=== PATIENT | male | born 1955 | race Caucasian/White ===

== ENCOUNTER 2016-10-31 15:09 | Emergency (ER) | payer OTHER ==
[~2016-10-31] VITALS: Ht 175.3 cm; Wt 82.0 kg
[~2016-10-31 15:09] MED LIST: LANSO15 PO; XANA0.5T PO
[2016-10-31 15:12] VITALS: BP 133/85; PULSE 103; RESP 15; TEMP 97.6; O2SAT 97
--- NOTE | 2016-10-31 15:35 | PD ---
Physical Exam Time Seen by Provider: 15:32 Narrative 61yo M c/o LLQ abd pain started today. Radiates to L testicle. Deneis N,V,D. Denies penile discharge or testicular swelling. Denies fever. VSS. Patient seen in triage. Waiting for bed placement. Data Data Last Documented VS Vital Signs Date Time Temp Pulse Resp B/P Pulse Ox O2 Delivery O2 Flow Rate FiO2 10/31/16 15:12 97.6 103 15 133/85 97 MDM Supervised Visit with SAAD: Thelma Sutherland Oct 31, 2016 15:35
--- NOTE | 2016-10-31 18:02 | PD ---
HPI Chief Complaint: Complaint Time Seen by Provider: 17:35 Travel History International Travel<30 days: No Contact w/Intl Traveler<30days: No Traveled to known affect area: No History of Present Illness HPI Patient is a 61-year-old male presents emergency department for evaluation of left testicle pain radiating to his left groin for the past 3 days on and off. States that his testicles do not feel the same in the pain seems to come from the superior most aspect of his left testicle. He is not feeling any masses and has had some mild dysuria. Denies any nausea or vomiting. States pain is fairly unimpressive currently. States never had this kind of thing happen to him before. States never had any scrotal issues female issues in the past. Happily no penile discharge. PFSH Past Medical History Anxiety: Yes Depression: Yes Cancer: No Cardiovascular Problems: No Diabetes: No Endocrine: No Gastrointestinal Disorders: Yes GERD: Yes Genitourinary: No Hepatitis: No Hiatal Hernia: No Hypertension: No Immune Disorder: No Implanted Vascular Access Dvce: No Medical other: Yes (L4, L5) Musculoskeletal: Yes (BACK AND NECK PAIN) Neurologic: No Psychiatric: Yes Reproductive: No Respiratory: No Immunizations Current: Yes Thyroid Disease: No Past Surgical History Body Medical Devices: NONE Cholecystectomy: Yes Other Surgery: Yes Social History Alcohol Use: No Tobacco Use: No Substance Use: No Allergies-Medications (Allergen,Severity, Reaction): Coded Allergies: Penicillin (Verified Allergy, Severe, Rash, 10/31/16) Naprosyn (Verified Adverse Reaction, Intermediate, Rash, 10/31/16) *MDRO Multi-Drug Resistant Organism (Verified Adverse Reaction, Unknown, ) MRSA PCR Screen negative 12/21/14. Reported Meds & Prescriptions Reported Meds & Active Scripts Active Levaquin (Levofloxacin) 750 Mg Tab 750 Mg PO DAILY 14 Days Reported Prevacid 15 Mg Solutab (Lansoprazole) 15 Mg Tab 15 Mg PO DAILY Xanax 0.5 mg (Alprazolam) Alprazolam 0.5 mg Tab 2 Tab PO HS Review of Systems Except as stated in HPI: all other systems reviewed are Neg Physical Exam Narrative GENERAL: [Well-developed well-nourished no apparent distress SKIN: Focused skin assessment warm/dry. HEAD: Atraumatic. Normocephalic. EYES: Pupils equal and round. No scleral icterus. No injection or drainage. ENT: No nasal bleeding or discharge. Mucous membranes pink and moist. NECK: Trachea midline. No JVD. CARDIOVASCULAR: Regular rate and rhythm. No murmur appreciated. RESPIRATORY: No accessory muscle use. Clear to auscultation. Breath sounds equal bilaterally. GASTROINTESTINAL: Abdomen soft, non-tender, nondistended. Hepatic and splenic margins not palpable no rebound no percussive tenderness. GENITOURINARY: Minimal tenderness of the left epididymis, scrotal sac otherwise unremarkable, testes normal, cremasteric reflex intact. Penis circumcised no discharge. No hernia. MUSCULOSKELETAL: No obvious deformities. No clubbing. No cyanosis. No edema. NEUROLOGICAL: Awake and alert. No obvious cranial nerve deficits. Motor grossly within normal limits. Normal speech. PSYCHIATRIC: Appropriate mood and affect; insight and judgment normal. Data Data Last Documented VS Vital Signs Date Time Temp Pulse Resp B/P Pulse Ox O2 Delivery O2 Flow Rate FiO2 10/31/16 15:12 97.6 103 15 133/85 97 Orders Us Testicles W Doppler (10/31/16 17:35) Urinalysis - C+S If Indicated (10/31/16 17:35) Oxycodone-Acetamin 5-325 Mg (Percocet (10/31/16 18:45) Labs Laboratory Tests Test 10/31/16 18:10 Urine Color YELLOW Urine Turbidity CLEAR Urine pH 7.0 Urine Specific [place] 1.012 Urine Protein NEG mg/dL Urine Glucose (UA) NEG mg/dL Urine Ketones NEG mg/dL Urine Occult Blood NEG Urine Nitrite NEG Urine Bilirubin NEG Urine Urobilinogen LESS THAN 2.0 MG/DL Urine Leukocyte Esterase NEG Urine RBC 1 /hpf Urine WBC LESS THAN 1 /hpf Urine Amorphous Sediment OCC Urine Bacteria RARE /hpf Microscopic Urinalysis Comment CULT NOT INDICATED MDM Medical Decision Making Medical Screen Exam Complete: Yes Emergency Medical Condition: Yes Differential Diagnosis Epididymitis, orchitis, urinary tract infection, hernia, groin pain. Narrative Course Patient roomed emergency department, appears well and in no apparent distress. Patient initially declined pain medicine during ultrasound needed Percocet. Abdominal exam is completely benign, there is some minimal epididymal tenderness. Ultrasound is normal. Discussed with patient and etiology of his pain is yet undetermined. Recommend trial of Levaquin for possible early epididymitis and follow-up with his primary care physician and he is amenable. Is no indication further emergent workup at this time. Last 24 hours Impressions Scrotum Ultrasound 10/31/16 [id number] Signed Impressions: Service Date/Time: October 18:17 - CONCLUSION: Testicles are normal. There is no evidence of mass or torsion Nimesh Damon MD Vital Signs Date Time Temp Pulse Resp B/P Pulse Ox O2 Delivery O2 Flow Rate FiO2 10/31/16 15:12 97.6 103 15 133/85 97 Diagnosis Primary Impression: Testicular pain, left Med/Other Pt SpecificInfo: Prescription(s) given Scripts Levofloxacin (Levaquin)750 Mg [id number] Mg PO DAILY 14 Days Ref 0 Prov:Alexis Spain MD 10/31/16 Disposition: 01 DISCHARGE HOME Condition: Stable Alexis Spain MD Oct 31, 2016 18:01
[2016-10-31] MEDS ORDERED: oxyCODONE/ACETAMINOPHEN 5 MG/325 MG TAB PO ONE (18:45)
[2016-10-31 19:03] LABS: BACTERIA, URINE RARE /hpf; BLOOD, URINE NEG (NEG); GLUCOSE,URINE NEG (NEG); KETONE, URINE NEG (NEG); NITRITE,URINE NEG (NEG); URINE COLOR YELLOW (YELLW/STRAW)
[2016-10-31 19:04] LABS: COMMENT (UR) CULT NOT INDICATED; CULTURE IF INDICATED CULT NOT INDICATED
--- NOTE | 2016-10-31 19:44 | RADRPT ---
EXAM DATE/TIME: 10/31/2016 18:17 [facility] COMPARISON: No previous studies available for comparison. INDICATIONS : Left testicular pain. MEDICAL HISTORY : Gastroesophageal reflux disease. Back and neck pain. Depression. Anxiety. SURGICAL HISTORY : Tonsillectomy. Cholecystectomy.Left rotator cuff surgery. Neck surgery disk replacement and spur mita vicky. ENCOUNTER: Initial ACUITY: 3 days PAIN SCORE: 8/10 LOCATION: Bilateral scrotum. MEASUREMENTS: RIGHT TESTICLE: 4.3 x 3.3 x 2.6cm LEFT TESTICLE: 3.9 x 3.7 x 1.9cm FINDINGS: RIGHT TESTICLE: Homogeneous echotexture without intra or extratesticular mass. Blood flow is symmetric and within no rmal limits. No hydrocele or varicocele. Epididymis is within normal limits. LEFT TESTICLE: Homogeneous echotexture without intra or extratesticular mass. Blood flow is symmetric and within no rmal limits. Multiple epididymal cysts. Small hydrocele SCROTUM: Within normal limits. CONCLUSION: Testicles are normal. There is no evidence of mass or torsion Nimesh Damon MD on October 31, 2016 at 19:41 Board Certified Radiologist. This report was verified electronically.
[2016-10-31] MEDS ORDERED: LEVA750T PO (19:55)
== END 2016-10-31 20:10 | disposition home or self-care (01) ==
LOC: NEPD 15:09
DX: N50.812 Left testicular pain (principal); R30.0 Dysuria; K21.9 Gastro-esophageal reflux disease without esophagitis
CPT/HCPCS: 76870; 81001; 93975

== ENCOUNTER 2017-03-09 01:26 | Emergency (ER) | payer OTHER ==
[~2017-03-09] VITALS: Ht 177.8 cm; Wt 88.0 kg
[~2017-03-09 01:26] MED LIST changes: +LEVA750T PO
[2017-03-09 01:38] VITALS: BP 154/70; PULSE 96; RESP 16; TEMP 98.6; O2SAT 99
[2017-03-09] MEDS ORDERED: PREV15CA15 PO (02:11)
[2017-03-09] MEDS ORDERED: ALPR.5 PO (02:11)
[2017-03-09] MEDS ORDERED: IBUP800T23 PO (02:34)
--- NOTE | 2017-03-09 02:34 | PD ---
HPI . Right hand numbness Chief Complaint: Injury Time Seen by Provider: 02:22 Travel History International Travel<30 days: No Contact w/Intl Traveler<30days: No Traveled to known affect area: No History of Present Illness HPI Patient presents with a chief complaint of right hand numbness. Onset has been at least a month ago. He says really tell me that he has been evaluated under syndrome with EMGs and has a known history of carpal tunnel syndrome. He states that his symptoms are worse at night. He states it feels like his hands have gone to sleep. He has not tried anything for this presentation to [facility]. Pain is rated at 10/10. PFSH Past Medical History Anxiety: Yes Depression: Yes Cancer: No Cardiovascular Problems: No Diabetes: No Endocrine: No Gastrointestinal Disorders: Yes GERD: Yes Genitourinary: No Hepatitis: No Hiatal Hernia: No Hypertension: No Immune Disorder: No Implanted Vascular Access Dvce: No Musculoskeletal: Yes (BACK AND NECK PAIN) Neurologic: No Psychiatric: Yes Reproductive: No Respiratory: No Immunizations Current: Yes Thyroid Disease: No Tetanus Vaccination: < 5 Years Influenza Vaccination: Yes Past Surgical History Body Medical Devices: NONE Cholecystectomy: Yes Other Surgery: Yes Social History Alcohol Use: No Tobacco Use: No Substance Use: No Allergies-Medications (Allergen,Severity, Reaction): Coded Allergies: penicillin G (Unverified Allergy, Severe, Rash, 03/04/17) naproxen (Unverified Adverse Reaction, Intermediate, Rash, 03/04/17) *MDRO Multi-Drug Resistant Organism (Verified Adverse Reaction, Unknown, ) MRSA PCR Screen negative 12/21/14. Reported Meds & Prescriptions Reported Meds & Active Scripts Active Reported Prevacid (Lansoprazole) 15 Mg Capdr 15 Mg PO DAILY Xanax (Alprazolam) 0.5 Mg Tab 0.5 Mg PO BID PRN Review of Systems Except as stated in HPI: all other systems reviewed are Neg Neurologic: Positive: Paresthesia Physical Exam Narrative GENERAL: Awake and alert and in no acute distress. SKIN: Warm and dry. Skin has normal color. HEAD: Atraumatic. Normocephalic. EYES: Pupils equal and round. NECK: Trachea midline. CARDIOVASCULAR: Regular rate and rhythm. His distal pulses and capillary refill are normal. RESPIRATORY: No accessory muscle use. MUSCULOSKELETAL: No obvious deformities. No edema. No muscular atrophy in the hands noted. NEUROLOGICAL: Awake and alert. No obvious cranial nerve deficits. Motor grossly within normal limits. Normal speech. Strength in the hand muscles seems equal. PSYCHIATRIC: Appropriate mood and affect; insight and judgment normal. Data Data Last Documented VS Vital Signs Date Time Temp Pulse Resp B/P Pulse Ox O2 Delivery O2 Flow Rate FiO2 03/09/17 02:09 Room Air 03/09/17 01:38 98.6 96 16 154/70 99 MDM Medical Decision Making Medical Screen Exam Complete: Yes Emergency Medical Condition: Yes Differential Diagnosis My differential diagnosis of paresthesias includes but is not limited to anxiety , radiculopathy, peripheral neuropathy, peripheral vascular disease, compartment syndrome Narrative Course This patient presents with a one-month history of right hand numbness and tingling. Symptoms are worse at night and better in the daytime. Patient later reports that he has a known history of carpal tunnel syndrome. He has had no treatment for the carpal tunnel syndrome. The patient will be discharged home with instructions to buy a carpal tunnel splint at the drugstore and use it at nighttime. He'll be instructed to take Motrin as needed for pain. He should follow up with a hand surgeon. Diagnosis Primary Impression: Carpal tunnel syndrome of right wrist Patient Instructions: Carpal Tunnel Syndrome (DC), General Instructions Additional Instructions: Buy a carpal tunnel splint at the drugstore and use it at night. Med/Other Pt SpecificInfo: Prescription(s) given Scripts Ibuprofen 800 Mg [id number] Mg PO Q8H PRN (Pain/Inflammation) #60 TAB Ref 0 Prov:Irene Gamboa MD 03/09/17 Disposition: 01 DISCHARGE HOME Condition: Stable Irene Gamboa MD Mar 09, 2017 02:34
== END 2017-03-09 03:03 | disposition home or self-care (01) ==
LOC: NEPE 01:26
DX: G56.01 Carpal tunnel syndrome, right upper limb (principal); K21.9 Gastro-esophageal reflux disease without esophagitis; F41.9 Anxiety disorder, unspecified
CPT/HCPCS: 99283